=== PATIENT | female | born 1995 | race Caucasian/White ===

== ENCOUNTER 2020-02-18 10:07 | Emergency (ER) | payer OTHER ==
[~2020-02-18] VITALS: Ht 162.6 cm; Wt 56.2 kg
[~2020-02-18 10:07] MED LIST: CLINDAMYCIN HC300 MG PO; LAC PO
[2020-02-18 10:17] VITALS: Ht 162.6 cm; Wt 56.2 kg
[2020-02-18 14:55] VITALS: BP 121/76
== END 2020-02-18 14:55 | disposition home or self-care (01) ==
LOC: ED 10:07
DX: N30.00 Acute cystitis without hematuria (principal); N72 Inflammatory disease of cervix uteri
CPT/HCPCS: 87491; 87591; J0696